=== PATIENT | female | born 2000 | race Caucasian/White ===

== ENCOUNTER 2022-08-05 07:01 | Emergency (ER) | payer OTHER ==
[~2022-08-05] VITALS: Ht 170.2 cm; Wt 75.0 kg
[2022-08-05] MEDS ORDERED: NORCO, ANEXSIA 5/325MG TABLET (HYDROcodone/ACETAMINOPHEN) PO ONE (08:45)
[2022-08-05] MEDS ORDERED: IBUP80TA PO (10:11)
[2022-08-05] MEDS ORDERED: HYDR-3713 PO (10:11)
[2022-08-05 10:49] VITALS: BP 123/69
== END 2022-08-05 10:50 | disposition home or self-care (01) ==
LOC: M ED 07:01
DX: S90.31XA Contusion of right foot, initial encounter (principal); W20.8XXA Other cause of strike by thrown, projected or falling object, initial encounter; Z79.1 Long term (current) use of non-steroidal anti-inflammatories (NSAID); Y92.009 Unspecified place in unspecified non-institutional (private) residence as the place of occurrence of the external cause

== ENCOUNTER 2023-11-10 13:19 | Emergency (ER) | payer OTHER ==
[~2023-11-10] VITALS: Ht 170.2 cm; Wt 69.2 kg
[~2023-11-10 13:19] MED LIST: HYDR-3713 PO; IBUP80TA PO
[2023-11-10 13:20] VITALS: BP 141/87; TEMP 97; O2SAT 97
[2023-11-10] MEDS ORDERED: CLAR10CA3 PO (15:07)
[2023-11-10] MEDS ORDERED: NAPR-837 PO (15:07)
[2023-11-10] MEDS ORDERED: AMOX875T2 PO (15:07)
== END 2023-11-10 15:15 | disposition home or self-care (01) ==
LOC: M ED 13:19
DX: S09.22XA Traumatic rupture of left ear drum, initial encounter (principal); H66.92 Otitis media, unspecified, left ear; W39.XXXA Discharge of firework, initial encounter; Y92.9 Unspecified place or not applicable; Y93.9 Activity, unspecified; Y99.9 Unspecified external cause status

== ENCOUNTER 2023-11-27 17:46 | Emergency (ER) | payer OTHER ==
[~2023-11-27] VITALS: Ht 170.2 cm; Wt 68.6 kg
[~2023-11-27 17:46] MED LIST changes: +AMOX875T2 PO; +CLAR10CA3 PO; +NAPR-837 PO
[2023-11-27] MEDS ORDERED: TRI-1TAB24 PO (18:09)
[2023-11-27 18:55] LABS: BASO % 0.4 % (0.0-1.0); EOS # 0.1 10^3/uL (0.0-0.5); EOS % 1.6 % (0.0-3.0); HEMATOCRIT 37.7 % (36.0-47.0); HEMOGLOBIN 12.7 g/dl (12.0-15.5); LYMPH # 2.4 10^3/uL (1.5-5.0); MEAN CORPUSCULAR HEMOGLOBIN 30.7 pg (27.0-33.0); MEAN CORPUSCULAR HGB CONC 33.7 g/dl (32.0-36.5); MEAN CORPUSCULAR VOLUME 91.1 fl (80.0-96.0); MONO # 0.4 10^3/uL (0.0-0.8); MONO % 6.6 % (2.0-8.0); NEUTROPHILS # 2.7 10^3/uL (1.5-8.5); NEUTROPHILS % 48.2 % (36.0-66.0); PLATELET COUNT, AUTOMATED 259 10^3/uL (150-450); RED BLOOD COUNT 4.14 10^6/uL (4.00-5.40); WHITE BLOOD COUNT 5.6 10^3/uL (4.0-10.0)
[2023-11-27 19:17] LABS: LIPASE 43 U/L (12-53)
[2023-11-27 19:18] LABS: AMYLASE 65 U/L (30-118)
[2023-11-27 19:19] LABS: ALBUMIN 3.6 G/DL (3.2-5.2); ALKALINE PHOSPHATASE 56 U/L (46-116); ALT/SGPT 9 U/L (7.0-40); AST/SGOT 8 U/L (<34); BILIRUBIN,DIRECT < 0.1 MG/DL (<0.4); BILIRUBIN,TOTAL 0.2 MG/DL (0.3-1.2); BLOOD UREA NITROGEN 13 MG/DL (9-23); CARBON DIOXIDE LEVEL 28 MMOL/L (20-31); CHLORIDE LEVEL 107 MMOL/L (98-107); CREATININE FOR GFR 0.73 MG/DL (0.55-1.30); GLOMERULAR FILTRATION RATE > 60.0 (>60); GLUCOSE, FASTING 80 MG/DL (60-100); POTASSIUM SERUM 3.8 MMOL/L (3.5-5.1); SODIUM LEVEL 139 MMOL/L (136-145); TOTAL PROTEIN 6.8 G/DL (5.7-8.2)
[2023-11-27 19:20] LABS: HCG, SERUM QUALITATIVE NEGATIVE (NEGATIVE)
[2023-11-28 00:08] VITALS: BP 138/83; TEMP 97.8; O2SAT 98
== END 2023-11-28 00:19 | disposition home or self-care (01) ==
LOC: M ED 17:46
DX: D25.9 Leiomyoma of uterus, unspecified (principal); N63.20 Unspecified lump in the left breast, unspecified quadrant; N85.2 Hypertrophy of uterus; Z79.3 Long term (current) use of hormonal contraceptives

== ENCOUNTER → 2023-12-22 | Outpatient (CLI) | payer OTHER ==
[~2023-12-22] MED LIST changes: +PROHANCE 279.3MG/ML 15ML VIAL As Ordered ONE; +TRI-1TAB24 PO
== END ==
LOC: M RAD 16:01
PROVIDERS: ATTEND Obstetrics & Gynecology
DX: R19.00 Intra-abdominal and pelvic swelling, mass and lump, unspecified site (principal); R10.2 Pelvic and perineal pain

== ENCOUNTER 2023-12-30 05:53 | Observation (INO) | payer OTHER ==
[~2023-12-30] VITALS: Ht 170.2 cm; Wt 69.0 kg
[2023-12-30] VITALS (8 sets, daily range): BP systolic 108–135; BP diastolic 53–65; TEMP 97–99; O2SAT 96–99
[~2023-12-30 05:53] MED LIST changes: +MIRA3350 PO; -PROHANCE 279.3MG/ML 15ML VIAL As Ordered ONE; +TRAM50TA2 PO
[2023-12-30 06:33] LABS: HEMATOCRIT 39.9 % (36.0-47.0); HEMOGLOBIN 13.4 g/dl (12.0-15.5); MEAN CORPUSCULAR HEMOGLOBIN 30.7 pg (27.0-33.0); MEAN CORPUSCULAR HGB CONC 33.6 g/dl (32.0-36.5); MEAN CORPUSCULAR VOLUME 91.3 fl (80.0-96.0); PLATELET COUNT, AUTOMATED 237 10^3/uL (150-450); RED BLOOD COUNT 4.37 10^6/uL (4.00-5.40); WHITE BLOOD COUNT 7.8 10^3/uL (4.0-10.0)
[2023-12-30] MEDS ORDERED: LR 1,000 ML IV SCH (06:35)
[2023-12-30] MEDS: ACETAMINOPHEN 500 MG TAB PO ONE (07:00)
[2023-12-30] MEDS: SCOPOLAMINE 1MG TRANSDERMAL PATCH TOP ONE (07:00)
[2023-12-30] MEDS: GABAPENTIN 300 MG CAP PO ONE (07:00)
[2023-12-30] MEDS ORDERED: ROCURONIUM BROMIDE 50MG/5ML VIAL As Ordered ONE (07:07)
[2023-12-30] MEDS ORDERED: LIDOCAINE 2% 100MG/5ML SDV (FOR ANES.) As Ordered ONE (07:07)
[2023-12-30] MEDS ORDERED: HYDROmorphone HCL 2MG/ML 1ML VIAL As Ordered ONE (07:07)
[2023-12-30] MEDS ORDERED: MIDAZOLAM INJ 2MG/2ML VIAL As Ordered ONE (07:07)
[2023-12-30] MEDS ORDERED: fentaNYL 100 MCG/2 ML INJECTION As Ordered ONE (07:07)
[2023-12-30] MEDS ORDERED: propofoL 200 MG/20 ML VIAL As Ordered ONE (07:07)
[2023-12-30] MEDS: ceFAZolin 2 GM/D5W 50 ML IV BAG As Ordered ONE (07:45)
[2023-12-30] MEDS: VASOPRESSIN INJ 20UNITS/ML 1ML VIAL As Ordered ONE (08:10)
[2023-12-30] MEDS: TRANEXAMIC ACID 100 MG/ML 10ML VIAL As Ordered ONE (08:55)
[2023-12-30] MEDS ORDERED: PROMETHAZINE 25MG/ML 1ML VIAL IV PRN (10:00)
[2023-12-30] MEDS ORDERED: SENNA 8.6 MG TAB (SENOKOT) PO PRN (10:00)
[2023-12-30] MEDS ORDERED: ACETAMINOPHEN 500 MG TAB PO PRN (10:00)
[2023-12-30] MEDS ORDERED: oxyCODONE 5MG TAB PO PRN (10:00)
[2023-12-30] MEDS: LR 1,000 ML IV SCH (10:00)
[2023-12-30] MEDS: fentaNYL 100 MCG/2 ML INJECTION IV PRN (10:21)
[2023-12-30] MEDS ORDERED: ONDANSETRON 4MG 2ML VIAL As Ordered ONE (10:34)
[2023-12-30] MEDS ORDERED: SUGAMMADEX SODIUM 500 MG/5 ML VIAL (BRIDION) As Ordered ONE (10:35)
[2023-12-30] MEDS: ONDANSETRON 4MG 2ML VIAL IV PRN ×2 (10:37→15:27)
[2023-12-30] MEDS: KETOROLAC 30 MG/ML 1ML VIAL IV SCH (10:37)
[2023-12-30] MEDS: HYDROMORPHONE HCL 0.5 MG/ 0.5 ML SYRINGE IV PRN (10:41)
[2023-12-30] MEDS: METOCLOPRAMIDE INJ 10MG/2ML VIAL IV ONE (10:57)
[2023-12-30] MEDS: oxyCODONE 5MG TAB PO PRN (10:59)
[2023-12-30] MEDS: ACETAMINOPHEN 500 MG TAB PO SCH (12:00)
[2023-12-30] MEDS ORDERED: HOME MED LIST COMPLETE! XX SCH (12:35)
[2023-12-31] VITALS: BP 118/54; TEMP 97.9; O2SAT 99
[2023-12-31 04:00] VITALS: BP 110/57; TEMP 99; O2SAT 98
[2023-12-31 06:17] LABS: BASO % 0.1 % (0.0-1.0); EOS # 0.1 10^3/uL (0.0-0.5); EOS % 0.6 % (0.0-3.0); LYMPH % 19.6 % (24.0-44.0); MEAN CORPUSCULAR HGB CONC 33.9 g/dl (32.0-36.5); MEAN CORPUSCULAR VOLUME 91.5 fl (80.0-96.0); MONO # 0.7 10^3/uL (0.0-0.8); MONO % 7.4 % (2.0-8.0); NEUTROPHILS # 7.2 10^3/uL (1.5-8.5); PLATELET COUNT, AUTOMATED 205 10^3/uL (150-450); RED BLOOD COUNT 3.16 10^6/uL (4.00-5.40)
[2023-12-31 06:23] LABS: HEMATOCRIT 28.9 % (36.0-47.0); HEMOGLOBIN 9.8 g/dl (12.0-15.5)
[2023-12-31 08:00] VITALS: BP 111/59; TEMP 98.4; O2SAT 98
[2023-12-31] MEDS: MIRALAX *UNIT DOSE* 17GM PACKET PO SCH (09:57)
== END 2023-12-31 10:15 | disposition home or self-care (01) ==
LOC: INTOOBSV 05:53 → M OR 05:53 → EDSTATUS 07:30 → M PED 11:40
PROVIDERS: ADMIT Student in an Organized Health Care Education/Training Program; ATTEND Student in an Organized Health Care Education/Training Program
DX: D25.2 Subserosal leiomyoma of uterus (principal); R11.0 Nausea; Z79.3 Long term (current) use of hormonal contraceptives
CPT/HCPCS: 36415; 58140; 85025; 85027; 86850; 86900; 86901; 88305; 96374; 96375; 96376; C1765; J0665; J0690; J1100; J1170; J1885; J2250; J2405; J2598; J2765; J3010

== ENCOUNTER → 2024-02-23 | Outpatient (CLI) | payer OTHER | LOC: M WHC 07:54 | PROVIDERS: ATTEND Student in an Organized Health Care Education/Training Program | DX: N63.20 Unspecified lump in the left breast, unspecified quadrant (principal) ==

== ENCOUNTER → 2024-03-02 | Outpatient (CLI) | payer OTHER ==
[2024-03-02 07:29] VITALS: TEMP 99.1
[2024-03-02 08:34] VITALS: BP 118/78; O2SAT 100
== END ==
LOC: M WHCPRO 07:28
PROVIDERS: ATTEND Student in an Organized Health Care Education/Training Program
DX: N63.22 Unspecified lump in the left breast, upper inner quadrant (principal)

== ENCOUNTER → 2024-07-04 | Outpatient (CLI) | payer OTHER | LOC: M WHC 06:32 | DX: K76.89 Other specified diseases of liver (principal); R10.84 Generalized abdominal pain; K59.00 Constipation, unspecified ==